=== PATIENT | female | born 1945 | race Caucasian/White ===

== ENCOUNTER 2018-11-17 06:29 | Emergency (ER) | payer OTHER ==
[~2018-11-17] VITALS: Ht 154.9 cm; Wt 68.9 kg
[~2018-11-17 06:29] MED LIST: ABILIFY20 M1 PO; ABILIFY20 MG PO; ADVAIR 500/50 D1 AER; BACO TOP; FLOVENT DI50 MCG/Act IH; GUAIFENESIN AN118 ML PO; HIBICLENS118 ML TOP; LAMOTRIGINE100 MG PO; LIPI20 PO; LORAZEPAM1 PO; METOPROLOL TART25 M1 PO; NIFEDICAL PO; NOR10 PO; OXCARBAZEPINE300 MG PO; PLAVIX300 MG PO; PRAVASTATIN SOD80 MG PO; PRE30 PO; TRAZODONE HCL300 M1 PO; VAL500 PO; ZES10 PO
[2018-11-17 06:34] VITALS: Ht 154.9 cm; Wt 68.9 kg
[2018-11-17 07:18] LABS: BASOPHIL % 0.8 % (0-2)
[2018-11-17 07:32] LABS: CARBON DIOXIDE 27.4 mmol/L (21-32); CHLORIDE SERUM 107 mmol/L (98-107); CREATININE SERUM 1.1 mg/dL (0.6-1.0); GLUCOSE SERUM 121 mg/dL (74-106); POTASSIUM SERUM 4.5 mmol/L (3.5-5.1); SODIUM SERUM 141 mmol/L (136-145)
[2018-11-17 07:36] LABS: ALBUMIN 3.4 g/dL (3.4-5.0); ALKALINE PHOSPHATASE 109 U/L (46-116); ALT/SGPT 31 U/L (14-59); AST/SGOT 22 U/L (15-37); BILIRUBIN TOTAL 0.3 mg/dL (0.20-1.00); TOTAL PROTEIN, SERUM 6.9 g/dL (6.4-8.2)
[2018-11-17 07:45] LABS: PLATELET COUNT 458 x10^3mcL (130-400)
[2018-11-17 08:17] LABS: microscopic required? NO
[2018-11-17 08:30] LABS: urine erythrocyte NEGATIVE (NEGATIVE)
[2018-11-17 09:16] VITALS: BP 152/53
== END 2018-11-17 09:16 | disposition home or self-care (01) ==
LOC: ED 06:29
PROVIDERS: Emergency Medicine
DX: R11.2 Nausea with vomiting, unspecified (principal); R55 Syncope and collapse; M25.572 Pain in left ankle and joints of left foot; J44.9 Chronic obstructive pulmonary disease, unspecified; I10 Essential (primary) hypertension; E78.00 Pure hypercholesterolemia, unspecified; F31.9 Bipolar disorder, unspecified; Z88.2 Allergy status to sulfonamides; Z88.5 Allergy status to narcotic agent
CPT/HCPCS: J2405; J7030; Q0092